=== PATIENT | female | born 1990 | race Caucasian/White ===

== ENCOUNTER → 2021-05-20 | Outpatient (CLI) | payer BC ==
--- NOTE | 2021-05-20 12:39 | RAD ---
EXAMINATION: Right elbow, forearm, and wrist radiograph. VIEWS: 3 views of the elbow, 2 views of the forearm, and 3 views of the wrist COMPARISON: None INDICATION:31 years, Female, pain post fall. FINDINGS: Elbow/forearm: No fracture, dislocation or subluxation. No soft tissue swelling or sizable joint effu ene. Wrist: No fracture, dislocation, or subluxation. Soft tissues are unremarkable. IMPRESSION: No acute osseous process or dislocation. Electronically signed by: Clint Soria DO (05/20/2021 12:36 PM) [id number]
== END ==
LOC: PMG 12:14
PROVIDERS: ATTEND Nurse Practitioner Family
DX: M79.601 Pain in right arm (principal); W01.0XXA Fall on same level from slipping, tripping and stumbling without subsequent striking against object, initial encounter
CPT/HCPCS: 73090; 73110; 73080-50

== ENCOUNTER 2021-09-17 12:24 | Emergency (ER) | payer BC ==
[~2021-09-17] VITALS: Ht 172.7 cm; Wt 60.0 kg
--- NOTE | 2021-09-17 13:13 | PHYS DOC ---
Past History Past Medical History: Endometriosis Past Surgical History: Other Additional Past Surgical Histo: brain surgery, laproscopy for endometriosis General Adult EDM: Chief Complaint: General Complaint HPI: HPI: Patient is a 31 year old female with past medical history of endometriosis who presents with right lower quadrant abdominal pain. Patient reports she was diagnosed with endometriosis over 1 year ago. Since her diagnosis time, she has intermittently had suprapubic and low back pain related to endometriosis. For the past 2 weeks, she states she has had right lower quadrant pain that is si gnificantly worse than prior pain associated with her endometriosis. Just prior to onset of symptoms, patient's Nexplanon hormonal control was removed on 09/04/2021. She had an ultrasound on 09/11/2021, which was normal. Patient is typically seen at [facility]. Each time she is called her doctors there, they advised her to wait till her planned laparoscopic procedure scheduled for January of this year. She was evaluated and [facility] and advised to present to the emergency department to rule out appendicitis as a cause of her current right lower quadrant pain. Patient has been taking ibuprofen and Tylenol as well as using heating pad without significant symptom relief. Patient denies fever, chills, weakness, N/V/D, constipation, vaginal bleeding, dysuria, hematuria. Review of Systems: Review of Systems: Constitutional: See HPI Eyes: Denies change in visual acuity, visual field deficits or discharge HENT: Denies ear pain, nasal congestion or sore throat Respiratory: Denies cough or shortness of breath Cardiovascular: Denies chest pain, palpitations or edema GI: See HPI : See HPI Musculoskeletal: Denies back pain or joint pain Integument: Denies rash or other skin lesion Neurologic: Denies headache, focal weakness or sensory changes Allergies: Allergies: Allergies Coded Allergies Type Severity Reaction Last Updated Verified No Known Drug Allergies 09/17/21 No Physical Exam: PE: Constitutional: Well developed, well nourished, no acute distress, non-toxic appearance. HENT: Normocephalic, atraumatic, bilateral external ears normal. Eyes: EOMI, conjunctiva normal, no discharge. Neck: Normal range of motion, no stridor. Abdomen: Bowel sounds normal, soft, mild right lower quadrant tenderness without rebound or guarding, negative McBurney's point tenderness, negative Rovsing sign, no masses, no pulsatile masses. Skin: Warm, dry, no erythema, no rash. Extremities: No cyanosis, no clubbing, ROM intact, no edema. Neurologic: Alert and oriented x4, normal motor function, normal sensory function, no focal deficits noted. Current Patient Data: Labs: Laboratory Tests Test 09/17/21 13:00 White Blood Count 5.2 x10^3/uL (4.0-11.0) Red Blood Count 4.43 x10^6/uL (3.50-5.40) Hemoglobin 13.3 g/dL (12.0-15.5) Hematocrit 40.3 % (36.0-47.0) Mean Corpuscular Volume 91 fL (79-100) Mean Corpuscular Hemoglobin 30 pg (25-35) Mean Corpuscular Hemoglobin Concent 33 g/dL (31-37) Red Cell Distribution Width 12.8 % (11.5-14.5) Platelet Count 240 x10^3/uL (140-400) Neutrophils (%) (Auto) 65 % (31-73) Lymphocytes (%) (Auto) 28 % (24-48) Monocytes (%) (Auto) 5 % (0-9) Eosinophils (%) (Auto) 1 % (0-3) Basophils (%) (Auto) 1 % (0-3) Neutrophils # (Auto) 3.4 x10^3uL (1.8-7.7) Lymphocytes # (Auto) 1.5 x10^3/uL (1.0-4.8) Monocytes # (Auto) 0.3 x10^3/uL (0.0-1.1) Eosinophils # (Auto) 0.0 x10^3/uL (0.0-0.7) Basophils # (Auto) 0.0 x10^3/uL (0.0-0.2) Sodium Level 144 mmol/L (136-145) Potassium Level 4.1 mmol/L (3.5-5.1) Chloride Level 106 mmol/L (98-107) Carbon Dioxide Level 28 mmol/L (21-32) Anion Gap 10 (6-14) Blood Urea Nitrogen 14 mg/dL (7-20) Creatinine 0.8 mg/dL (0.6-1.0) Estimated GFR (Cockcroft-Gault) 84.2 BUN/Creatinine Ratio 18 (6-20) Glucose Level 79 mg/dL (70-99) Calcium Level 9.0 mg/dL (8.5-10.1) Total Bilirubin 0.6 mg/dL (0.2-1.0) Aspartate Amino Transf (AST/SGOT) 13 U/L (15-37) Alanine Aminotransferase (ALT/SGPT) 17 U/L (14-59) Alkaline Phosphatase 79 U/L (46-116) Total Protein 7.6 g/dL (6.4-8.2) Albumin 3.9 g/dL (3.4-5.0) Albumin/Globulin Ratio 1.1 (1.0-1.7) Lipase 75 U/L (73-393) Vital Signs: Vital Signs Date Time Temp Pulse Resp B/P (MAP) Pulse Ox O2 Delivery O2 Flow Rate FiO2 09/17/21 15:20 73 16 124/81 (95) 100 Room Air 09/17/21 14:41 18 Room Air 09/17/21 12:30 73 22 127/85 (99) 100 Radiology/Procedures: Radiology/Procedures: PROCEDURE: PELVIS COMPLETE US PELVIS COMPLETE History: RLQ abd pain, hx endometriosis Comparison: None. Technique: Sonographic examination of the pelvis was performed with tra nsabdominal technique. Findings: Uterus- Uterine parenchyma: Homogeneous without fibroids. Uterine measurements: 8.9 x 3.9 x 4.5 cm Cervix: Unremarkable. Endometrium- Endometrial Stripe: No abnormal fluid collections in the endometrial cavity, no obvious mass, and no abnormal blood flow within the endometrium by Doppler. Thickness: 0.7 cm. Adnexa- Right Ovary: Identified and appears normal. Size: 3.2 x 2.3 x 2.7 cm Doppler: Normal. Left Ovary: Identified and appears normal. Size: 2.4 x 2.1 x 2.2 cm Doppler: Normal. Other: No abnormal adnexal masses. No abnormal free fluid in the pelvis. Impression: 1. No acute findings in the pelvis. No Electronically signed by: Kerwin Jimenez MD (09/17/2021 2:09 PM) [id number] PROCEDURE: RIGHT LOWER QUANDRANT US ABDOMEN LIMITED History: Right lower quadrant abdominal pain. Comparison: None. Technique: Sonographic examination of the right lower quadrant of the abdomen. Findings: The appendix is not identified. Bowel gas limits evaluation of the right lower quadrant. No masses or free fluid is identified. No rebound tenderness is elicited with release of graded transducer pressure. Impression: 1. Nonvisualization of the appendix. No secondary signs of appendicitis. Electronically signed by: Kerwin Jimenez MD (09/17/2021 2:15 PM) [id number] Heart Score: C/O Chest Pain: No Course & Med Decision Making: Course & Med Decision Making Pertinent Labs and Imaging studies reviewed. (See chart for details) Patient is a 31-year-old female with history of endometriosis who presents with right lower quadrant abdominal pain. She was evaluated in an outpatient office, and advised to present to the emergency department for evaluation for appendicitis. Patient does not have any concerning symptoms aside from the location of her pain. Ultrasound ordered to evaluate pelvic abnormality as well as the right lower quadrant. Patient is labs and imaging studies are reassuring at this point. At this time, she does not require emergent or urgent surgical treatment. I advised that she call her specialist at now that she has been evaluated in the ER. She should follow with them for continued abdominal discomfort. Return precautions were provided. Patient and her mother at bedside understand and are agreeable to discharge plan. Dragon Disclaimer: DragRollad Disclaimer: This electronic medical record was generated, in whole or in part, using a voice recognition dictation system. Departure Departure: Impression: Primary Impression: Right lower quadrant abdominal pain Additional Impression: Endometriosis Disposition: 01 HOME / SELF CARE / HOMELESS Condition: IMPROVED Referrals: TYLER BALL APRN (PCP) Patient Instructions: Abdominal Pain, Women, Endometriosis Additional Instructions: EMERGENCY DEPARTMENT GENERAL DISCHARGE INSTRUCTIONS Thank you for coming to [facility] (ED) today and trusting us with you care. We trust that you had a positive experience in our Emergency Department. If you wish to speak to the department management, you may call the director at [phone]. YOUR FOLLOW UP INSTRUCTIONS ARE FOLLOWS: 1. Follow up with your primary care doctor. If you do not have a primary doctor, please ask for a resource list of physicians or clinics that may be able to assist you with follow up care. 2. The emergency provider has interpreted your imaging studies, if any were ordered. The radiology psychiatric specialist also reviewed them. If there is a change in the findings, you will be notified in 48 hours when at all possible. 3. If a lab test or culture has been done, your results will be reviewed and y ou will be notified if you need a change in treatment. 4. Follow instructions verbalized to you and refer to the printouts if needed. ADDITIONAL INSTRUCTIONS AND INFORMATION: 1. Your care today has been supervised by a physician who is specially trained in emergency care. Many problems require more than one evaluation for a complete diagnosis and treatment. We recommend that you schedule your follow up appointment as recommended to ensure complete treatment of you illness or injury. If you are unable to obtain follow up care and continue to have a problem, or if your condition worsens, we recommend that you return to the ED. 2. We are not able to safely determine your condition over the phone nor are we able to give sound medical advice over the phone. For these safety reasons, if you call for medical advice we will ask you to come to the ED for further evaluation. 3. If you have any questions regarding these discharge instructions please call the ED at [phone]. SAFETY INFORMATION: In the interest of safety, wellness, and injury prevention; we encourage you to wear your seat belt, if you smoke; quite smoking, and we encourage family to use a protective helmet for bicycling and other sporting events that present an increased risk for head injury. IF YOUR SYMPTOMS WORSEN OR NEW SYMPTOMS DEVELOP, OR YOU HAVE CONCERNS ABOUT YOUR CONDITION; OR IF YOUR CONDITION WORSENS WHILE YOU ARE WAITING FOR YOUR FOLLOW UP APPOINTMENT; EITHER CONTACT YOUR PRIMARY CARE DOCTOR, THE PHYSICIAN WHOSE NAME AND NUMBER YOU WERE GIVEN, OR RETURN TO THE ED IMMEDIATELY. Scripts Tramadol Hcl (TRAMADOL HCL) 50 Mg Tablet 50 MG PO PRN Q6HRS PRN for PAIN, #20 TAB Prov: TERRA SUAZO 09/17/21 TERRA SUAZO Sep 17, 2021 13:13
[2021-09-17 13:39] LABS: BASO % 1 % (0-3); EOS % 1 % (0-3); HEMATOCRIT 40.3 % (36.0-47.0); HEMOGLOBIN 13.3 g/dL (12.0-15.5); LYMPH # 1.5 x10^3/uL (1.0-4.8); LYMPH % 28 % (24-48); MEAN CORPUSCULAR HEMOGLOBIN 30 pg (25-35); MEAN CORPUSCULAR HGB CONC 33 g/dL (31-37); MEAN CORPUSCULAR VOLUME 91 fL (79-100); MONO # 0.3 x10^3/uL (0.0-1.1); MONO % 5 % (0-9); NEUT # 3.4 x10^3uL (1.8-7.7); NEUT % 65 % (31-73); PLATELET COUNT 240 x10^3/uL (140-400); RED BLOOD COUNT 4.43 x10^6/uL (3.50-5.40); RED CELL DISTRIBUTION WIDTH 12.8 % (11.5-14.5); WHITE BLOOD COUNT 5.2 x10^3/uL (4.0-11.0)
[2021-09-17 13:50] LABS: CREATININE 0.8 mg/dL (0.6-1.0); GFR 84.2; POTASSIUM 4.1 mmol/L (3.5-5.1)
[2021-09-17 13:56] LABS: ALBUMIN 3.9 g/dL (3.4-5.0); ALBUMIN/GLOBULIN RATIO 1.1 (1.0-1.7); TOTAL BILIRUBIN 0.6 mg/dL (0.2-1.0); TOTAL PROTEIN 7.6 g/dL (6.4-8.2)
--- NOTE | 2021-09-17 14:11 | RAD ---
US PELVIS COMPLETE History: RLQ abd pain, hx endometriosis Comparison: None. Technique: Sonographic examination of the pelvis was performed with transabdominal technique. Findings: Uterus- Uterine parenchyma: Homogeneous without fibroids. Uterine measurements: 8.9 x 3.9 x 4.5 cm Cervix: Unremarkable. Endometrium- Endometrial Stripe: No abnormal fluid collections in the endometrial cavity, no obvious mass, and no abnormal blood flow within the endometrium by Doppler. Thickness: 0.7 cm. Adnexa- Right Ovary: Identified and appears normal. Size: 3.2 x 2.3 x 2.7 cm Doppler: Normal. Left Ovary: Identified and appears normal. Size: 2.4 x 2.1 x 2.2 cm Doppler: Normal. Other: No abnormal adnexal masses. No abnormal free fluid in the pelvis. Impression: 1. No acute findings in the pelvis. No Electronically signed by: Kerwin Jimenez MD (09/17/2021 2:09 PM) [id number]
--- NOTE | 2021-09-17 14:17 | RAD ---
US ABDOMEN LIMITED History: Right lower quadrant abdominal pain. Comparison: None. Technique: Sonographic examination of the right lower quadrant of the abdomen. Findings: The appendix is not identified. Bowel gas limits evaluation of the right lower quadrant. No masses or free fluid is identified. No rebound tenderness is elicited with release of graded transducer pressu re. Impression: 1. Nonvisualization of the appendix. No secondary signs of appendicitis. Electronically signed by: Kerwin Jimenez MD (09/17/2021 2:15 PM) [id number]
[2021-09-17] MEDS ORDERED: MORPHINE SULFATE 2 MG/ML DISP.SYRIN. IV ONE (14:30)
[2021-09-17] MEDS ORDERED: TRAM50TA PO (14:37)
[2021-09-17 15:20] VITALS: BP 124/81
== END 2021-09-17 15:21 | disposition home or self-care (01) ==
LOC: ER 12:24
DX: R10.31 Right lower quadrant pain (principal); N80.9 Endometriosis, unspecified; M54.59 Other low back pain
CPT/HCPCS: 36415; 76856; 80053; 83690; 85025; 93976; 96374; 99284; J2270